=== PATIENT | female | born 1990 | race Caucasian/White ===

== ENCOUNTER 2017-01-31 18:10 | Emergency (ER) | payer OTHER ==
[2017-01-31 18:29] VITALS: BP 94/69
[2017-01-31] MEDS ORDERED: Ondansetron 4 MG/2 ML SDV IVPUSH ONE ×2 (18:54→20:14)
[2017-01-31] MEDS ORDERED: Sodium Chloride 0.9% 1,000 ML IV ONE (18:54)
[2017-01-31] MEDS ORDERED: HYDROmorphone 1 MG/ML Syringe IVPUSH ONE (18:54)
[2017-01-31] MEDS ORDERED: Sodium Chloride 0.9% 10 ML Syringe FLUSH PRN (18:55)
[2017-01-31] MEDS ORDERED: HYDROmorphone 0.5 MG/0.5 ML Syringe IVPUSH ONE (20:14)
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
--- NOTE | 2017-02-01 09:56 | CT ---
CT abdomen and pelvis Technique: Multiple axial sections were obtained from above the dome of the diaphragm inferiorly through the pubic symphysis. Intravenous and oral contrast not utilized. Study has been performed as a ureteral stone protocol. Findings: Right and left kidneys show no abnormal calcifications. No ureteral dilatation or ureteral stone is seen. No bladder calculi are seen. Visualized lung bases are clear. Noncontrast appearance of the liver and spleen appears within normal limits. Adrenal glands show no nodule. Pancreas shows no discrete abnormality. Aorta shows no aneurysmal dilatation. No retroperitoneal adenopathy or mesenteric abnormalities are seen. Appendix is seen which appears normal. No pelvic mass or adenopathy is seen. Bone window settings were reviewed which appear within normal limits for the patient's age. Impression: 1. No renal calculi, ureteral dilatation or ureteral stone is seen. 2. Nothing acute is appreciated on noncontrast CT study of the abdomen and pelvis. Diagnostic code #1 I agree with preliminary report issued by [employer] ([facility] preliminary report dictated on 01/31/17, 9:46 PM Central Time)
== END 2017-01-31 22:00 | disposition home or self-care (01) ==
LOC: JD.ED 18:10
DX: N39.0 Urinary tract infection, site not specified (principal); F17.210 Nicotine dependence, cigarettes, uncomplicated; Z98.51 Tubal ligation status; Z93.0 Tracheostomy status; Z88.8 Allergy status to other drugs, medicaments and biological substances
CPT/HCPCS: 36415; 74176; 80053; 81001; 84703; 85025; 86140; 87086; 96361; 96374; 96375; 96376; 99284; J1170; J2405; J7040; J7050

== ENCOUNTER 2019-12-18 15:13 | Emergency (ER) | payer OTHER ==
[2019-12-18 15:24] VITALS: BP 106/71; PULSE 89
[2019-12-18] MEDS ORDERED: Ondansetron 4 MG Tab.DIS PO ONE (16:09)
[2019-12-18] MEDS ORDERED: HYDROmorphone 1 MG/ML Syringe IM ONE (16:09)
--- NOTE | 2019-12-18 16:15 | CR ---
Right hand: 4 views right hand were obtained. Comparison: No prior hand study. No fracture, dislocation or other bony abnormality is appreciated. Soft tissue swelling is noted. Impression: 1. Soft tissue swelling. No bony abnormality is appreciated on right hand exam. Diagnostic code #1 This report was dictated in MDT
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
== END 2019-12-18 16:50 | disposition home or self-care (01) ==
LOC: JD.ED 15:13
DX: S67.21XA Crushing injury of right hand, initial encounter (principal); F17.210 Nicotine dependence, cigarettes, uncomplicated; Z88.6 Allergy status to analgesic agent; W20.8XXA Other cause of strike by thrown, projected or falling object, initial encounter
CPT/HCPCS: 73130; 96372; 99283; A9270; J1170